=== PATIENT | female | born 1980 | race Caucasian/White ===

== ENCOUNTER → 2018-07-26 | Emergency (ER) | payer OTHER ==
[~2018-07-26] VITALS: Ht 160 cm; Wt 72.6 kg
[~2018-07-26] MED LIST: CIPRO500 MG; DOXYCYCLINE HY100 MG PO; FLAGYL500MG; INTESTINEX680 M1 PO; KETO10TA2 PO; LEVSIN0.125 MG; PEPCID AC20 MG PO
== END | disposition home or self-care (01) ==
LOC: ER 15:55
DX: N83.292 Other ovarian cyst, left side (principal); N70.11 Chronic salpingitis; R10.32 Left lower quadrant pain

== ENCOUNTER 2018-12-06 10:47 | Day surgery (SDC) | payer OTHER | END 2018-12-06 13:40 | disposition home or self-care (01) | LOC: AMB-ENDOS 10:47 | DX: K57.30 Diverticulosis of large intestine without perforation or abscess without bleeding (principal) ==

== ENCOUNTER 2019-07-19 09:47 | Emergency (ER) | payer OTHER ==
[~2019-07-19] VITALS: Ht 157.5 cm; Wt 73.5 kg
== END 2019-07-19 15:41 | disposition home or self-care (01) ==
LOC: ER 09:47
DX: R10.32 Left lower quadrant pain (principal)

== ENCOUNTER 2023-05-29 13:59 | Emergency (ER) | payer OTHER ==
[~2023-05-29] VITALS: Ht 157.5 cm; Wt 68.0 kg
[2023-05-29 17:29] LABS: HEMATOCRIT 38.7 % (36.0-45.00); MEAN CELL VOLUME 85.9 fL (80.00-100.00); MEAN CORPUSCULAR HEMOGLOBIN 28.8 pg (27.00-32.0); MEAN CORPUSCULAR HGB CONC 33.5 g/dl (32.0-36.0); PLATELET COUNT 246 K/uL (150-450); RED CELL DISTRIBUTION WIDTH 15.3 % (11.5-14.5)
[2023-05-29 17:47] LABS: ALBUMIN 3.7 gm/dL (3.4-5.0); BILIRUBIN TOTAL 0.3 mg/dL (0.3-1.2); CALCIUM 9.5 mg/dL (8.5-10.1); CREATININE SERUM 0.78 mg/dL (0.55-1.02); GFR 80.99; GLOBULINA 3.7 G/DL (2.4-3.5); POTASSIUM 3.79 mEq/L (3.5-5.1); TOTAL PROTEIN 7.4 gm/dL (6.4-8.2)
[2023-05-29 17:59] LABS: URINE APPEARANCE Clear; URINE BILIRRUBIN Negative (NEGATIVE); URINE BLOOD Negative; URINE COLOR Yellow; URINE GLUCOSE Negative (NEGATIVE); URINE LEUKOCYTE Negative; URINE NITRATE Negative; URINE PROTEIN Negative (NEGATIVE); URINE UROBILINOGEN 0.2 E.U./dl
[2023-05-29 18:02] LABS: URINE BACTERIA 424.4 uL (0.0-1933); URINE EPITHELIAL CELLS 5.7 uL (0.0-38.8); URINE RBC 2.2 uL (0.0-20.8); URINE WBC 8.8 uL (0.0-23.2)
== END 2023-05-29 22:44 | disposition home or self-care (01) ==
LOC: ER 14:00
PROVIDERS: General Practice
DX: K57.32 Diverticulitis of large intestine without perforation or abscess without bleeding (principal)

== ENCOUNTER 2025-04-08 18:49 | Emergency (ER) | payer OTHER ==
[~2025-04-08] VITALS: Ht 165.1 cm; Wt 90.7 kg
[~2025-04-08 18:49] MED LIST changes: +LEVSIN/SL0.125 MG SL; +TRAM1TAB98 PO
[2025-04-08] MEDS ORDERED: CIPROFLOXACIN IN 5 % DEXTROSE 400 MG/200 ML PIGGYBAG IV ONE ×2 (19:09→19:15)
[2025-04-08] MEDS ORDERED: KETOROLAC TROMETHAMINE 30 MG VIAL ONE (19:09)
[2025-04-08] MEDS ORDERED: FAMOTIDINE/PF 20 MG/2 ML VIAL ONE (19:10)
[2025-04-08] MEDS ORDERED: FAMOtidine 10 MG/ML (4ML VIAL) IV ONE (19:15)
[2025-04-08] MEDS ORDERED: KETOROLAC TROMETHAMINE 30 MG VIAL IV ONE (19:15)
[2025-04-08 19:44] LABS: BASO % 0.7 % (0.1-1.2); EOS # 0.22 (0.04-0.54); EOS % 2.2 % (0.7-7.0); LYMPH # 2.90 (1.18-3.74); LYMPH % 28.6 % (19.3-53.1); MEAN PLATELET VOLUME 10.70 fl (9.4-12.4); MONO # 0.97 (0.24-0.82); MONO % 9.6 % (4.7-12.5); NEUT # 5.94 (1.56-6.13); NEUT % 58.5 % (34.0-71.1); RED CELL DISTRIBUTION WIDTH 14.4 % (11.6-14.4)
[2025-04-08 20:01] LABS: URINE APPEARANCE Clear; URINE BILIRRUBIN Negative (NEGATIVE); URINE BLOOD Negative; URINE COLOR Yellow; URINE GLUCOSE Negative (NEGATIVE); URINE KETONE Negative (NEGATIVE); URINE LEUKOCYTE Negative; URINE NITRATE Negative; URINE PROTEIN Negative (NEGATIVE); URINE UROBILINOGEN 0.2 E.U./dl
[2025-04-08 20:04] LABS: URINE BACTERIA 766.4 uL (0.0-1933); URINE EPITHELIAL CELLS 18.4 uL (0.0-38.8); URINE RBC 3.2 uL (0.0-20.8); URINE WBC 31.1 uL (0.0-23.2)
[2025-04-08 20:06] LABS: URINE CAST 0.00 uL (0.0-1.40)
[2025-04-08 20:07] LABS: INR 0.98
[2025-04-08 20:12] LABS: ALT/SGPT 28.0 U/L (12-78); AST/SGOT 16.0 U/L (15-37); BILIRUBIN TOTAL 0.22 mg/dL (0.3-1.2); BUN CREA RATIO 17.0 (7.0-25.0); CREATININE SERUM 0.78 mg/dL (0.55-1.02); GFR 80.23; GLOBULINA 4.1 G/DL (2.4-3.5); GLUCOSE FASTING 103.0 mg/dL (65-100); OSMOLALITY SERUM 283.0 MOSM/KG (275-295)
[2025-04-08] MEDS ORDERED: CIPRO500 MG PO (20:44)
[2025-04-08] MEDS ORDERED: PEPCID AC20 MG PO (20:44)
[2025-04-08] MEDS ORDERED: LEVSIN/SL0.125 MG SL (20:44)
[2025-04-08] MEDS ORDERED: METRONIDAZOLE500 MG PO (20:44)
[2025-04-08] MEDS ORDERED: PROBIOTIC1 EAC2 PO (20:44)
== END 2025-04-08 22:42 | disposition home or self-care (01) ==
LOC: ER 18:49
PROVIDERS: General Practice
DX: R10.32 Left lower quadrant pain (principal); K80.80 Other cholelithiasis without obstruction; K63.89 Other specified diseases of intestine; K57.90 Diverticulosis of intestine, part unspecified, without perforation or abscess without bleeding; G47.30 Sleep apnea, unspecified